=== PATIENT | male | born 1965 | race Caucasian/White ===

== ENCOUNTER 2017-01-05 17:43 | Inpatient (IN) | payer BC ==
[~2017-01-05] VITALS: Ht 182.9 cm; Wt 98.0 kg
[2017-01-05] MEDS ORDERED: LEVOTHYROXINE100 MCG ORAL (17:55)
[2017-01-05] MEDS ORDERED: LASIX20 M1 ORAL (17:55)
[2017-01-05] MEDS ORDERED: LORATADINE10 M2 PO (17:55)
[2017-01-05] MEDS ORDERED: SYMBICORT 1601 PUFFS INH (17:55)
[2017-01-05] MEDS ORDERED: KLOR-CON M2020 MEQ ORAL (17:55)
[2017-01-05] MEDS ORDERED: KLOR-CON M1010 ME1 PO (17:55)
[2017-01-05] MEDS ORDERED: METOPROLOL SUC100 MG ORAL (17:55)
[2017-01-05] MEDS ORDERED: KLONOPIN0.5 MG ORAL (17:58)
[2017-01-05] MEDS ORDERED: LOSARTAN POTASS25 MG ORAL (17:58)
[2017-01-05] MEDS ORDERED: OMEPRAZOLE40 M1 ORAL (17:58)
[2017-01-05] MEDS ORDERED: Nitroglycerin 2% oint pkt TOPIC ONE (18:00)
[2017-01-05] MEDS ORDERED: Famotidine 20 MG/ 2ML VIAL IVP ONE (18:00)
--- NOTE | 2017-01-05 18:03 | Emergency Room Report ---
History of Present Illness General Chief Complaint: Chest Pain Source: Patient Present Illness HPI Patient presents with crushing substernal chest pain it feels like a 200 pound elephant sitting on his chest. Began 18 hours ago. He started cardiac rehabilitation last week and has had 3 episodes. After each episode he said the same crushing substernal chest pain. The pain is 8/10 when paramedics arrived. They gave him aspirin and nitroglycerin spray and now the pain is a 2/ 10. Radiates up into his neck. His doctors told him that he might be having angina and to come into the hospital and called paramedics. The patient is a history of congestive heart failure was admitted to in October. At that time his heart rate was 16 and the ejection fraction of 60 also. He did some abdominal surgery and this corrected the problem. He denies having a blood clot at that time. The nature of this event is unclear. He had an angiogram 2 and half years ago which was "normal" according to him. In addition to this is been worked up for arrhythmias recently. The plan doing another event monitor in February. Consideration for placement of implanted defibrillator. The patient is on Lasix. Causes diarrhea. He's lost a lot of weight and no longer has to take blood pressure medications. Also he is off of diabetic medications. His cholesterol has also dropped down, but he is on statins. After his discharge in October he's had more nasal congestion and postnasal drip. Denies any fevers. Allergies: Coded Allergies: Egg Yolk (Verified Allergy, Unknown, Itching, diarrhea, 01/06/17) IODINE (Verified Allergy, Unknown, 01/06/17) PENICILLINS (Verified Allergy, Unknown, 01/05/17) Uncoded Allergies: DYE (Allergy, Unknown, 01/05/17) SHELLFISH (Allergy, Unknown, 01/05/17) SULFA (Allergy, Unknown, 01/05/17) Patient History Past Medical History: see triage record Social History: Denies: smoking Social History Narrative mom is coming Reviewed Nursing Documentation: PMH: Agreed, PSxH: Agreed Nursing Documentation-PMH Past Medical History: No History, Except For Hx Cardiac Problems: Yes - CHF, hypothyroidism, hypogonadism, high cholesterol , hypoadrenalism Hx Hypertension: Yes Review of Systems All Other Systems: negative except mentioned in HPI Physical Exam Vital Signs Date Time Temp Pulse Resp B/P Pulse Ox O2 Delivery O2 Flow Rate FiO2 01/05/17 17:48 96.6 77 16 118/76 100 Room Air Sp02 EP Interpretation: reviewed, normal General Appearance: well appearing, no apparent distress, GCS 15 Head: normocephalic Eyes: bilateral eye PERRL, bilateral eye normal inspection ENT: moist mucus membranes Neck: supple Respiratory: chest non-tender, lungs clear, normal breath sounds Cardiovascular #1: regular rate, rhythm Cardiovascular #2: 2+ radial (R) Gastrointestinal: normal inspection, normal bowel sounds, non tender, no mass, non-distended Musculoskeletal: back normal, gait/station normal, normal range of motion Neurologic: alert, oriented x3, grossly normal Psychiatric: mood/affect normal Skin: normal inspection, warm/dry Medical Decision Making Diagnostic Impression: Primary Impression: Acute coronary syndrome Additional Impression: H/O CHF ER Course Patient presents with chest pressure. The fact that the pain is better after aspirin and nitrates suggestive either of acute coronary syndrome or esophageal spasm. He's been having exertional symptoms after cardiac rehabilitation which suggests this is more related to his heart. Alternatively this could be to increased mucoid nasal discharge and GERD. However we need to exclude acute coronary syndrome. Workup will be with EKG, labs, cardiac monitoring. The patient be treated with nitro paste as well as aspirin in the field and his pain is almost completely resolved here. EKG is normal sinus rhythm rate of 65 normal intervals normal axis. Chest x- ray no acute pathology. Initial troponin is negative. Pain at 18:30 1/10. Patient continued with minimal pain. Admit telemetry, Dr. Nguyễn. Dr. Coppola here evaluating patient. Laboratory Tests Test 01/05/17 17:35 01/05/17 18:06 01/05/17 22:50 Urine Color Pale yellow Urine Appearance Clear Urine pH 5 (4.5-8.0) Urine Specific [place] 1.005 (1.005-1.035) Urine Protein Negative (NEGATIVE) Urine Glucose (UA) Negative (NEGATIVE) Urine Ketones Negative (NEGATIVE) Urine Occult Blood 1+ (NEGATIVE) H Urine Nitrite Negative (NEGATIVE) Urine Bilirubin Negative (NEGATIVE) Urine Urobilinogen Normal MG/DL (0.0-1.0) Urine Leukocyte Esterase Negative (NEGATIVE) Urine RBC 0-2 /HPF (0 - 0) H Urine WBC 0-2 /HPF (0 - 0) Urine Squamous Epithelial Cells None /LPF (NONE/OCC) Urine Amorphous Sediment /LPF (NONE) Urine Bacteria Few /HPF (NONE) Urine Opiates Screen Negative (NEGATIVE) Urine Barbiturates Screen Negative (NEGATIVE) Phencyclidine (PCP) Screen Negative (NEGATIVE) Urine Amphetamines Screen Negative (NEGATIVE) Urine Benzodiazepines Screen Negative (NEGATIVE) Urine Cocaine Screen Negative (NEGATIVE) Urine Marijuana (THC) Screen Negative (NEGATIVE) White Blood Count 10.9 K/UL (4.8-10.8) H Red Blood Count 5.25 M/UL (4.70-6.10) Hemoglobin 15.3 G/DL (14.2-18.0) Hematocrit 47.0 % (42.0-52.0) Mean Corpuscular Volume 89 FL (80-99) Mean Corpuscular Hemoglobin 29.1 PG (27.0-31.0) Mean Corpuscular Hemoglobin Concent 32.5 G/DL (32.0-36.0) Red Cell Distribution Width 12.8 % (11.6-14.8) Platelet Count 229 K/UL (150-450) Mean Platelet Volume 7.5 FL (6.5-10.1) Neutrophils (%) (Auto) 69.5 % (45.0-75.0) Lymphocytes (%) (Auto) 20.1 % (20.0-45.0) Monocytes (%) (Auto) 6.8 % (1.0-10.0) Eosinophils (%) (Auto) 2.3 % (0.0-3.0) Basophils (%) (Auto) 1.3 % (0.0-2.0) Prothrombin Time 10.0 SEC (9.30-11.50) Prothrombin Time INR 1.0 (0.9-1.1) PTT 26 SEC (23-33) Sodium Level 143 mEQ/L (135-145) Potassium Level 4.2 mEQ/L (3.4-4.9) Chloride Level 102 mEQ/L (98-107) Carbon Dioxide Level 27 mEQ/L (20-30) Anion Gap 14 (5-15) Blood Urea Nitrogen 10 mg/dL (7-23) Creatinine 1.1 mg/dL (0.7-1.2) Estimate Glomerular Filtration Rate > 60 mL/min (>60) Glucose Level 92 mg/dL (74-106) Calcium Level 9.4 mg/dL (8.6-10.2) Total Bilirubin 0.6 mg/dL (0.0-1.2) Aspartate Amino Transferase (AST) 21 U/L (5-40) Alanine Aminotransferase (ALT) 30 U/L (3-41) Alkaline Phosphatase 114 U/L (40-129) Total Creatine Kinase 32 U/L (38-174) L Troponin I < 0.30 ng/mL (<=0.30) < 0.30 ng/mL (<=0.30) Pro-B-Type Natriuretic Peptide 174 pg/mL (0-125) H Total Protein 6.8 g/dL (6.6-8.7) Albumin 4.3 g/dL (3.5-5.2) Globulin 2.5 g/dL Albumin/Globulin Ratio 1.7 (1.0-2.7) EKG Diagnostic Results Rate: normal Rhythm: NSR ST Segments: no acute changes ASA given to the pt in ED: Yes - EMS Rhythm Strip Diag. Results EP Interpretation: yes Rhythm: NSR, no PVC's, no ectopy Chest X-Ray Diagnostic Results Chest X-Ray Ordered: Yes # of Views/Limited/Complete: 1 View EP Interpretation: Yes Interpretation: no consolidation, no effusion, no pneumothorax, no acute cardiopulmonary disease Indication: Chest Pain Impression: No acute disease Interpreting ER Provider: Monalisa Last Vital Signs Date Time Temp Pulse Resp B/P Pulse Ox O2 Delivery O2 Flow Rate FiO2 01/05/17 17:48 96.6 77 16 118/76 100 Room Air Status: improved Disposition: ADMITTED INPATIENT Condition: Serious Ede Sheldon M.D. Jan 05, 2017 18:03
[2017-01-05 18:09] VITALS: BP 118/76
[2017-01-05 18:24] LABS: APPEARANCE,URINE CLEAR; KETONES,URINE NEGATIVE (NEGATIVE); LEUKOCYTE ESTERASE ,URINE NEGATIVE (NEGATIVE); NITRITE,URINE NEGATIVE (NEGATIVE); PH,URINE 5 (4.5-8.0); PROTEIN,URINE NEGATIVE (NEGATIVE); UROBILINOGEN,URINE NORMAL MG/DL (0.0-1.0)
[2017-01-05 18:44] LABS: BASOPHILS % (AUTO) 1.3 % (0.0-2.0); EOSINOPHILS % (AUTO) 2.3 % (0.0-3.0); LYMPHOCYTES % (AUTO) 20.1 % (20.0-45.0); MEAN CORPUSCULAR HEMOGLOBIN 29.1 PG (27.0-31.0); MEAN CORPUSCULAR HGB CONC 32.5 G/DL (32.0-36.0); MEAN CORPUSCULAR VOLUME 89 FL (80-99); MEAN PLATELET VOLUME 7.5 FL (6.5-10.1); MONOCYTES % (AUTO) 6.8 % (1.0-10.0); NEUTROPHILS % (AUTO) 69.5 % (45.0-75.0); PLATELET COUNT 229 K/UL (150-450); RED BLOOD COUNT 5.25 M/UL (4.70-6.10); RED CELL DISTRIBUTION WIDTH 12.8 % (11.6-14.8); WHITE BLOOD COUNT 10.9 K/UL (4.8-10.8)
[2017-01-05 18:45] LABS: BACTERIA,URINE FEW /HPF; RBC,URINE 0-2 /HPF (0 - 0); WBC,URINE 0-2 /HPF (0 - 0)
[2017-01-05] MEDS ORDERED: HYDROCORTISONE20 MG PO (18:54)
[2017-01-05] MEDS ORDERED: ANDROGEL 1.62% TOPIC (18:56)
[2017-01-05] MEDS ORDERED: HYDROCORTISONE5 MG PO (18:58)
[2017-01-05] MEDS ORDERED: ATORVASTATIN CA40 MG ORAL (18:59)
[2017-01-05] MEDS ORDERED: SYMBICORT 16010.2 G1 IH (19:02)
[2017-01-05] MEDS ORDERED: FLUTICASONE PRO16 G1 NASAL (19:02)
[2017-01-05] MEDS ORDERED: TRAMADOL HCL50 MG ORAL (19:02)
[2017-01-05] MEDS ORDERED: CARAMEL FLAVOR1 ML ORAL (19:02)
[2017-01-05 19:04] LABS: TROPONIN I < 0.30 ng/mL (<=0.30)
[2017-01-05 19:09] LABS: ALANINE AMINOTRANSFERASE 30 U/L (3-41); ALBUMIN/GLOBULIN RATIO 1.7 (1.0-2.7); ANION GAP 14 (5-15); ASPARTATE AMINO TRANSFERASE 21 U/L (5-40); CALCIUM 9.4 mg/dL (8.6-10.2); CARBON DIOXIDE 27 mEQ/L (20-30); CHLORIDE 102 mEQ/L (98-107); CREATININE 1.1 mg/dL (0.7-1.2); GLOMERULAR FILTRATION RATE > 60 mL/min (>60); HEMOLYSIS 3; POTASSIUM 4.2 mEQ/L (3.4-4.9); SODIUM 143 mEQ/L (135-145); TOTAL PROTEIN 6.8 g/dL (6.6-8.7)
[2017-01-05 20:00] VITALS: BP 108/59
[2017-01-05 21:51] VITALS: BP 115/70
[2017-01-05 22:30] VITALS: BP 112/74
[2017-01-05] MEDS ORDERED: Miralax 17gm pkt ORAL PRN (23:00)
[2017-01-05] MEDS ORDERED: Milk of Magnesia 30ml Ud ORAL PRN (23:00)
[2017-01-05] MEDS ORDERED: Zolpidem 5mg tab ORAL PRN (23:00)
[2017-01-05] MEDS ORDERED: Morphine Sulfate 4mg/ml Inj IVP PRN (23:00)
[2017-01-05] MEDS ORDERED: Morphine Sulfate 2mg/ml Inj IVP PRN (23:00)
[2017-01-05] MEDS ORDERED: clonazePAM 0.5mg tab ORAL SCH (23:00)
[2017-01-05] MEDS ORDERED: Metoprolol XL 100mg tab ORAL ONE (23:45)
[2017-01-05 23:46] LABS: TROPONIN I < 0.30 ng/mL (<=0.30)
[2017-01-06] VITALS: BP 117/80
[2017-01-06] MEDS: Nitroglycerin Subl 0.4mg tab (Bottle Of 25) SL PRN ×3 (01:19→23:14)
[2017-01-06 04:30] VITALS: BP 97/64
--- NOTE | 2017-01-06 04:50 | History and Physical ---
History of Present Illness General Date patient seen: Jan 05, 2017 Time patient seen: 20:00 Reason for Hospitalization: Chest Pain Present Illness HPI 51yo male with pmh of HTN, HLD, GERD, hypothyroidism, hypogonadism, adrenal insufficiency, stress-induced cardiomyopathy now w/ recovery of EF per pt, recent ex-lap who presents with chest pain. Pt had increasing episodes of chest pain since starting cardiac rehab on 12/28/16. Pt describes substernal chest pain pressure and tightness, 8/ which starting during cardiac rehab sessions, lasting abt 18hrs/day. It feels as if an elephant is sitting on his chest. Associated w/ some SOB. No f/c, n/v, d/c, abd pain, cough. Worse w/ lying down. Not changed w/ positional changes. Pt with recent complicated hospital course at [facility] rom 10/20-11/01 after presenting w/ severe abd pain, fevers and diarrhea. Pt was admitted at the time to ICU. Given clinical decline with no source of infection (neg cultures), he underwent exp~laparotomy on 10/22/16 which was unrevealing and had abdominal closure on 10/25/16. During period of critical illness, he had a TTE that showed a drop in EF from 63% (08/04/2016) to 18% (10/22/2016) and global hypokinesis and severe RV dysfunction.~On 10/25/2016, new anterior TWI was noted but WI unlikely given pt remained clinically asymptomatic, downtrending of troponin ~(peaked at 0.29), echo findings of global hypokinesis and non-focal and had normal coronaries from angiogram in 2013. ~He had acute transiminitis up in the s felt to be 2/2 congestive hepatopathy which slowly resolved by discharge. A RHC was performed on 10/22 which showed normal filling pressures with preserved cardiac output. 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 He was discharged with a ziopatch and scheduled to follow up on 11/18/2015 with EP for atrial tachycardia ablation candidacy. Ziopatch showed low burden of atrial tachycardia. e recovered from his acute illness with latest TTE on 10/28/2016 that showed improvement in EF to 45-50% and normal RV function. Interestingly his mother reported that he has a known shrimp allergy and had some shrimp before hospitalization and was felt that ? possibly a severe, atypical allergic reaction. In ED, initial trop and EKG unremarkable.Got ASA and NGT spray by EMS w/ improvement in pain to a 08/20. Allergies: Coded Allergies: Egg Yolk (Verified Allergy, Unknown, Itching, diarrhea, 01/06/17) IODINE (Verified Allergy, Unknown, 01/06/17) PENICILLINS (Verified Allergy, Unknown, 01/05/17) Uncoded Allergies: DYE (Allergy, Unknown, 01/05/17) SHELLFISH (Allergy, Unknown, 01/05/17) SULFA (Allergy, Unknown, 01/05/17) Medication History Scheduled Atorvastatin Calcium* (Atorvastatin Calcium*), 40 MG ORAL BEDTIME, (Reported) Budesonide/Formoterol Fumarate (Symbicort 160-4.5 Mcg Inhaler), 1 PUFF INH TWICE A DAY, (Reported) Budesonide/Formoterol Fumarate (Symbicort 160-4.5 Mcg Inhaler), 1 PUFF IH BID, ( Reported) Fluticasone Propionate* (Fluticasone Propionate*), 1 SPRAY NASAL DAILY, ( Reported) Furosemide* (Lasix*), 20 MG ORAL QOD, (Reported) Hydrocortisone Tablet (Hydrocortisone), 5 MG PO DAILY, (Reported) Levothyroxine Sodium* (Levothyroxine Sodium*), 100 MCG ORAL DAILY, (Reported) Loratadine (Loratadine), 10 MG PO DAILY, (Reported) Losartan Potassium* (Losartan Potassium*), 25 MG ORAL DAILY, (Reported) Metoprolol Succinate* (Metoprolol Succinate*), 100 MG ORAL BID, (Reported) Omeprazole (Omeprazole), 40 MG ORAL BEFORE DINNER, (Reported) Potassium Chloride (Klor-Con M20), 10 MEQ ORAL THREE TIMES A WEEK, (Reported) Potassium Chloride (Klor-Con M10), 10 MEQ PO QOD, (Reported) [Androgel 1.62%], 2 APPLIC TOPIC DAILY, (Reported) Scheduled PRN Caramel Flavor (Caramel Flavor), 2 TSP ORAL NEEDED PRN for For Pain, ( Reported) Clonazepam* (Klonopin*), 0.5 MG ORAL THREE TIMES A DAY PRN for For Anxiety, ( Reported) Tramadol Hcl* (Ultram*), 50 MG ORAL Q8HR PRN for Moderate Pain (Pain Scale 4-6), (Reported) Patient History History Provided By: Patient, Medical Record, EMS, PMD Healthcare decision maker Resuscitation status Full Code Advanced Directive on File Past Medical/Surgical History Past Medical/Surgical History: (1) HTN (hypertension) (2) Hypogonadism (3) Adrenal insufficiency (4) GERD (gastroesophageal reflux disease) (5) Stress-induced cardiomyopathy (6) Hypothyroidism (7) Atrial tachycardia, paroxysmal (8) H/O exploratory laparotomy Family History Family History: Patient reports no known family medical history. Social History Social History: (1) No significant social history Review of Systems Constitutional: Reports: no symptoms Eye: Reports: no symptoms ENT: Reports: no symptoms Respiratory: Reports: shortness of breath Cardiovascular: Reports: chest pain Gastrointestinal: Reports: no symptoms Genitourinary: Reports: no symptoms Musculoskeletal: Reports: no symptoms Skin: Reports: no symptoms Psychiatric: Reports: no symptoms Neurological: Reports: no symptoms Endocrine: Reports: no symptoms Hematologic/Lymphatic: Reports: no symptoms Physical Exam Physical Exam Narrative General: alert, cooperative, no distress, appears stated age Head: normocephalic, without obvious abnormality, atraumatic Eyes: conjunctivae/corneas clear. PERRL, EOM's intact Throat: lips, mucosa, and tongue normal. MMM Neck: supple, symmetrical, trachea midline, and no JVD Lungs: clear to auscultation bilaterally Heart: regular rate and rhythm, S1, S2 normal, no murmur, click, rub or gallop Abdomen: soft, non-tender, non-distended, bowel sounds normal; no masses or organomegaly Extremities: extremities normal, atraumatic, no cyanosis or edema Pulses: 2+ and symmetric Skin: skin color, texture, turgor normal; no rashes or lesions Neurologic: grossly normal, no focal deficits Last 24 Hour Vital Signs Date Time Temp Pulse Resp B/P Pulse Ox O2 Delivery O2 Flow Rate FiO2 01/06/17 01:37 104/64 01/06/17 01:19 118/76 01/06/17 00:13 70 117/80 01/06/17 00:00 97.5 62 21 117/80 98 Room Air 01/06/17 00:00 61 01/05/17 22:30 97.4 68 18 112/74 99 Room Air 01/05/17 22:30 65 01/05/17 22:15 98.0 64 13 115/70 99 Room Air 01/05/17 21:51 64 13 115/70 99 Room Air 01/05/17 20:00 64 17 108/59 99 Room Air 01/05/17 18:17 104/67 01/05/17 18:09 77 16 Room Air 01/05/17 18:09 98.0 16 118/76 100 Room Air 01/05/17 17:48 96.6 77 16 118/76 100 Room Air Intake and Output 01/05/17 01/06/17 19:00 07:00 Intake Total 0 ml Balance 0 ml Intake Oral 0 ml Laboratory Tests Test 01/05/17 17:35 01/05/17 18:06 01/05/17 22:50 Urine Color Pale yellow Urine Appearance Clear Urine pH 5 (4.5-8.0) Urine Specific [place] 1.005 (1.005-1.035) Urine Protein Negative (NEGATIVE) Urine Glucose (UA) Negative (NEGATIVE) Urine Ketones Negative (NEGATIVE) Urine Occult Blood 1+ (NEGATIVE) H Urine Nitrite Negative (NEGATIVE) Urine Bilirubin Negative (NEGATIVE) Urine Urobilinogen Normal MG/DL (0.0-1.0) Urine Leukocyte Esterase Negative (NEGATIVE) Urine RBC 0-2 /HPF (0 - 0) H Urine WBC 0-2 /HPF (0 - 0) Urine Squamous Epithelial Cells None /LPF (NONE/OCC) Urine Amorphous Sediment /LPF (NONE) Urine Bacteria Few /HPF (NONE) Urine Opiates Screen Negative (NEGATIVE) Urine Barbiturates Screen Negative (NEGATIVE) Phencyclidine (PCP) Screen Negative (NEGATIVE) Urine Amphetamines Screen Negative (NEGATIVE) Urine Benzodiazepines Screen Negative (NEGATIVE) Urine Cocaine Screen Negative (NEGATIVE) Urine Marijuana (THC) Screen Negative (NEGATIVE) White Blood Count 10.9 K/UL (4.8-10.8) H Red Blood Count 5.25 M/UL (4.70-6.10) Hemoglobin 15.3 G/DL (14.2-18.0) Hematocrit 47.0 % (42.0-52.0) Mean Corpuscular Volume 89 FL (80-99) Mean Corpuscular Hemoglobin 29.1 PG (27.0-31.0) Mean Corpuscular Hemoglobin Concent 32.5 G/DL (32.0-36.0) Red Cell Distribution Width 12.8 % (11.6-14.8) Platelet Count 229 K/UL (150-450) Mean Platelet Volume 7.5 FL (6.5-10.1) Neutrophils (%) (Auto) 69.5 % (45.0-75.0) Lymphocytes (%) (Auto) 20.1 % (20.0-45.0) Monocytes (%) (Auto) 6.8 % (1.0-10.0) Eosinophils (%) (Auto) 2.3 % (0.0-3.0) Basophils (%) (Auto) 1.3 % (0.0-2.0) Prothrombin Time 10.0 SEC (9.30-11.50) Prothromb Time International Ratio 1.0 (0.9-1.1) Activated Partial Thromboplast Time 26 SEC (23-33) Sodium Level 143 mEQ/L (135-145) Potassium Level 4.2 mEQ/L (3.4-4.9) Chloride Level 102 mEQ/L (98-107) Carbon Dioxide Level 27 mEQ/L (20-30) Anion Gap 14 (5-15) Blood Urea Nitrogen 10 mg/dL (7-23) Creatinine 1.1 mg/dL (0.7-1.2) Estimat Glomerular Filtration Rate > 60 mL/min (>60) Glucose Level 92 mg/dL (74-106) Calcium Level 9.4 mg/dL (8.6-10.2) Total Bilirubin 0.6 mg/dL (0.0-1.2) Aspartate Amino Transf (AST/SGOT) 21 U/L (5-40) Alanine Aminotransferase (ALT/SGPT) 30 U/L (3-41) Alkaline Phosphatase 114 U/L (40-129) Total Creatine Kinase 32 U/L (38-174) L Troponin I < 0.30 ng/mL (<=0.30) < 0.30 ng/mL (<=0.30) Pro-B-Type Natriuretic Peptide 174 pg/mL (0-125) H Total Protein 6.8 g/dL (6.6-8.7) Albumin 4.3 g/dL (3.5-5.2) Globulin 2.5 g/dL Albumin/Globulin Ratio 1.7 (1.0-2.7) Height (Feet): 6 Height (Inches): 8.00 Weight (Pounds): 216 Medications Current Medications Medications (Trade) Dose Ordered Sig/Mike Route PRN Reason Start Time Stop Time Status Last Admin Dose Admin Acetaminophen (Tylenol) 650 mg Q4H PRN ORAL Mild Pain (Pain Scale 1-3) 01/05/17 23:00 02/04/17 22:59 Acetaminophen (Tylenol) 650 mg Q4H PRN ORAL fever 01/05/17 23:00 02/04/17 22:59 Aspirin (ASA) 81 mg DAILY ORAL 01/06/17 09:00 02/05/17 08:59 Atorvastatin Calcium (Lipitor) 40 mg BEDTIME ORAL 01/05/17 23:30 02/04/17 23:29 01/06/17 00:03 Bisacodyl (Dulcolax) 10 mg HSPRN PRN RECTAL Constipation 01/05/17 23:00 02/04/17 22:59 Budesonide/ Formoterol Fumarate (Symbicort 160/ 4.5) 1 puff TWICE A DAY INH 01/06/17 09:00 02/05/17 08:59 Clonazepam (KlonoPIN) 0.5 mg TIDPRN ORAL 01/06/17 23:00 01/12/17 22:59 Dextrose (Dextrose 50%) STAT PRN IV Hypoglycemia 01/05/17 23:00 02/04/17 22:59 Docusate Sodium (Colace) 100 mg EVERY 12 HOURS ORAL 01/06/17 09:00 02/05/17 08:59 Fluticasone Propionate (Flonase) 1 spray DAILY NASAL 01/06/17 09:00 02/05/17 08:59 Furosemide (Lasix) 20 mg QOD ORAL 01/07/17 09:00 02/06/17 08:59 Heparin Sodium (Porcine) (Heparin 5000 units/ml) 5,000 units EVERY 12 HOURS SUBQ 01/06/17 09:00 02/05/17 08:59 Hydrocortisone (Cortef) 5 mg DAILY ORAL 01/06/17 09:00 02/05/17 08:59 Levothyroxine Sodium (Synthroid) 100 mcg BEFORE BREAKFAST ORAL 01/06/17 06:30 02/05/17 06:29 Losartan Potassium (Cozaar) 25 mg DAILY ORAL 01/06/17 13:00 02/05/17 12:59 Magnesium Hydroxide (Mom) 30 ml HSPRN PRN ORAL Constipation 01/05/17 23:00 02/04/17 22:59 Metoprolol Succinate (Toprol XL) 100 mg Q12HR ORAL 01/06/17 09:00 02/05/17 08:59 Morphine Sulfate (Morphine Sulfate) 2 mg Q4HR PRN IVP Moderate Pain (Pain Scale 4-6) 01/05/17 23:00 01/12/17 22:59 Morphine Sulfate (Morphine Sulfate) 4 mg Q4H PRN IVP Severe Pain (Pain Scale 7-10) 01/05/17 23:00 01/12/17 22:59 Nitroglycerin (Ntg) 0.4 mg Q5M PRN SL Prn Chest Pain 01/05/17 23:00 02/04/17 22:59 01/06/17 01:37 Ondansetron HCl (Zofran) 4 mg Q6H PRN IVP Nausea & Vomiting 01/05/17 23:00 02/04/17 22:59 Polyethylene Glycol (Miralax) 17 gm HSPRN PRN ORAL Constipation 01/05/17 23:00 02/04/17 22:59 Potassium Chloride (K-Dur) 10 meq QOD ORAL 01/07/17 09:00 02/06/17 08:59 Tramadol HCl (Ultram) 50 mg Q6H PRN ORAL For moderate to severe Pain 01/05/17 23:00 01/12/17 22:59 Zolpidem Tartrate (Ambien) 5 mg HSPRN PRN ORAL Insomnia 01/05/17 23:00 02/04/17 22:59 Assessment/Plan Problem List: (1) Chest pain ICD Codes: R07.9 - Chest pain, unspecified SNOMED: 96896982 (2) Stress-induced cardiomyopathy ICD Codes: I51.81 - Takotsubo syndrome SNOMED: 088311076 (3) Atrial tachycardia, paroxysmal ICD Codes: I47.1 - Supraventricular tachycardia SNOMED: 963281965 (4) HTN (hypertension) ICD Codes: I10 - Essential (primary) hypertension SNOMED: 25652002 (5) Adrenal insufficiency ICD Codes: E27.40 - Unspecified adrenocortical insufficiency SNOMED: 276889169 (6) GERD (gastroesophageal reflux disease) ICD Codes: K21.9 - Gastro-esophageal reflux disease without esophagitis SNOMED: 261196444 (7) Hypothyroidism ICD Codes: E03.9 - Hypothyroidism, unspecified SNOMED: 03324088 Status: stable Assessment/Plan Admit inpt Cardiology consult Trend trop/EKG Check TTE Will likely need stress test Cont ASA, statin Cont home meds: MTP, losartan, hydrocortisone, synthroid, lasix + KCl, symbicort Check A1C, lipid panel, TSH for risk stratification Mady Cormier M.D. Jan 06, 2017 04:50
[2017-01-06 08:04] VITALS: BP 97/63
[2017-01-06] MEDS: Aspirin Baby 81mg ORAL SCH (08:28)
[2017-01-06] MEDS: Docusate 100mg cap ORAL SCH ×2 (08:30→20:33)
[2017-01-06] MEDS: traMADol 50mg tab ORAL PRN ×2 (08:30→16:32)
[2017-01-06] MEDS: Heparin 5000 units/ml inj SUBQ SCH ×2 (08:31→20:36)
[2017-01-06 08:32] LABS: EOSINOPHILS % (AUTO) 2.7 % (0.0-3.0); MEAN CORPUSCULAR HEMOGLOBIN 29.5 PG (27.0-31.0); MEAN CORPUSCULAR HGB CONC 32.9 G/DL (32.0-36.0); MEAN CORPUSCULAR VOLUME 90 FL (80-99); MEAN PLATELET VOLUME 7.3 FL (6.5-10.1); MONOCYTES % (AUTO) 9.8 % (1.0-10.0); NEUTROPHILS % (AUTO) 49.5 % (45.0-75.0); PLATELET COUNT 198 K/UL (150-450); RED BLOOD COUNT 4.74 M/UL (4.70-6.10); WHITE BLOOD COUNT 7.7 K/UL (4.8-10.8)
[2017-01-06] MEDS: Metoprolol XL 100mg tab ORAL SCH ×2 (08:32→20:33)
[2017-01-06] MEDS ORDERED: Hydrocortisone 20mg tab ORAL SCH (09:00)
[2017-01-06] MEDS ORDERED: Metoprolol XL 100mg tab ORAL SCH (09:00)
[2017-01-06] MEDS ORDERED: Losartan 25mg tab ORAL SCH (09:00)
[2017-01-06 09:14] LABS: ALANINE AMINOTRANSFERASE 30 U/L (3-41); ALBUMIN/GLOBULIN RATIO 1.6 (1.0-2.7); ANION GAP 13 (5-15); ASPARTATE AMINO TRANSFERASE 26 U/L (5-40); CARBON DIOXIDE 26 mEQ/L (20-30); CHLORIDE 103 mEQ/L (98-107); CHOLESTEROL 104 mg/dL (< 200); CHOLESTEROL/HDL RATIO 2.3 (3.3-4.4); CREATININE 1.1 mg/dL (0.7-1.2); GLOMERULAR FILTRATION RATE > 60 mL/min (>60); HEMOLYSIS 6; LDL CHOLESTEROL (CALC.) 35 mg/dL (60-99); MAGNESIUM 2.1 mg/dL (1.7-2.5); POTASSIUM 3.8 mEQ/L (3.4-4.9); SODIUM 142 mEQ/L (135-145); TOTAL PROTEIN 5.8 g/dL (6.6-8.7)
[2017-01-06 09:19] LABS: TROPONIN I < 0.30 ng/mL (<=0.30)
[2017-01-06 09:57] LABS: HEMOGLOBIN A1C 5.3 % (< 6.0)
[2017-01-06] MEDS: clonazePAM 0.5mg tab ORAL PRN (10:22)
[2017-01-06] MEDS: Flonase Nasal Inhaler 16gm NASAL SCH (10:22)
[2017-01-06 11:56] VITALS: BP 119/75
[2017-01-06] MEDS: Losartan 25mg tab ORAL SCH (12:11)
--- NOTE | 2017-01-06 13:18 | Cardiac Electrophysiology PN ---
Subjective Subjective [id number] Objective Last 24 Hour Vital Signs Date Time Temp Pulse Resp B/P Pulse Ox O2 Delivery O2 Flow Rate FiO2 01/06/17 12:11 119/75 01/06/17 11:56 97.3 58 18 119/75 98 Room Air 01/06/17 09:53 65 18 99 Room Air 01/06/17 09:53 65 18 Room Air 01/06/17 09:53 65 18 99 Room Air 01/06/17 09:29 97.3 01/06/17 08:32 56 97/63 01/06/17 08:04 97.3 56 18 97/63 97 Room Air 01/06/17 07:44 65 01/06/17 04:30 97.3 67 21 97/64 97 Room Air 01/06/17 04:00 65 01/06/17 01:37 104/64 01/06/17 01:19 118/76 01/06/17 00:13 70 117/80 01/06/17 00:00 97.5 62 21 117/80 98 Room Air 01/06/17 00:00 61 01/05/17 22:30 97.4 68 18 112/74 99 Room Air 01/05/17 22:30 65 01/05/17 22:15 98.0 64 13 115/70 99 Room Air 01/05/17 21:51 64 13 115/70 99 Room Air 01/05/17 20:00 64 17 108/59 99 Room Air 01/05/17 18:17 104/67 01/05/17 18:09 77 16 Room Air 01/05/17 18:09 98.0 16 118/76 100 Room Air 01/05/17 17:48 96.6 77 16 118/76 100 Room Air Intake and Output 01/05/17 01/06/17 19:00 07:00 Intake Total 0 ml Balance 0 ml Intake Oral 0 ml # Voids 1 Laboratory Tests Test 01/05/17 17:35 01/05/17 18:06 01/05/17 22:50 01/06/17 07:10 Urine Color Pale yellow Urine Appearance Clear Urine pH 5 (4.5-8.0) Urine Specific [place] 1.005 (1.005-1.035) Urine Protein Negative (NEGATIVE) Urine Glucose (UA) Negative (NEGATIVE) Urine Ketones Negative (NEGATIVE) Urine Occult Blood 1+ (NEGATIVE) H Urine Nitrite Negative (NEGATIVE) Urine Bilirubin Negative (NEGATIVE) Urine Urobilinogen Normal MG/DL (0.0-1.0) Urine Leukocyte Esterase Negative (NEGATIVE) Urine RBC 0-2 /HPF (0 - 0) H Urine WBC 0-2 /HPF (0 - 0) Urine Squamous Epithelial Cells None /LPF (NONE/OCC) Urine Amorphous Sediment /LPF (NONE) Urine Bacteria Few /HPF (NONE) Urine Opiates Screen Negative (NEGATIVE) Urine Barbiturates Screen Negative (NEGATIVE) Phencyclidine (PCP) Screen Negative (NEGATIVE) Urine Amphetamines Screen Negative (NEGATIVE) Urine Benzodiazepines Screen Negative (NEGATIVE) Urine Cocaine Screen Negative (NEGATIVE) Urine Marijuana (THC) Screen Negative (NEGATIVE) White Blood Count 10.9 K/UL (4.8-10.8) H 7.7 K/UL (4.8-10.8) Red Blood Count 5.25 M/UL (4.70-6.10) 4.74 M/UL (4.70-6.10) Hemoglobin 15.3 G/DL (14.2-18.0) 14.0 G/DL (14.2-18.0) L Hematocrit 47.0 % (42.0-52.0) 42.5 % (42.0-52.0) Mean Corpuscular Volume 89 FL (80-99) 90 FL (80-99) Mean Corpuscular Hemoglobin 29.1 PG (27.0-31.0) 29.5 PG (27.0-31.0) Mean Corpuscular Hemoglobin Concent 32.5 G/DL (32.0-36.0) 32.9 G/DL (32.0-36.0) Red Cell Distribution Width 12.8 % (11.6-14.8) 13.0 % (11.6-14.8) Platelet Count 229 K/UL (150-450) 198 K/UL (150-450) Mean Platelet Volume 7.5 FL (6.5-10.1) 7.3 FL (6.5-10.1) Neutrophils (%) (Auto) 69.5 % (45.0-75.0) 49.5 % (45.0-75.0) Lymphocytes (%) (Auto) 20.1 % (20.0-45.0) 37.0 % (20.0-45.0) Monocytes (%) (Auto) 6.8 % (1.0-10.0) 9.8 % (1.0-10.0) Eosinophils (%) (Auto) 2.3 % (0.0-3.0) 2.7 % (0.0-3.0) Basophils (%) (Auto) 1.3 % (0.0-2.0) 1.0 % (0.0-2.0) Prothrombin Time 10.0 SEC (9.30-11.50) Prothromb Time International Ratio 1.0 (0.9-1.1) Activated Partial Thromboplast Time 26 SEC (23-33) Sodium Level 143 mEQ/L (135-145) 142 mEQ/L (135-145) Potassium Level 4.2 mEQ/L (3.4-4.9) 3.8 mEQ/L (3.4-4.9) Chloride Level 102 mEQ/L (98-107) 103 mEQ/L (98-107) Carbon Dioxide Level 27 mEQ/L (20-30) 26 mEQ/L (20-30) Anion Gap 14 (5-15) 13 (5-15) Blood Urea Nitrogen 10 mg/dL (7-23) 13 mg/dL (7-23) Creatinine 1.1 mg/dL (0.7-1.2) 1.1 mg/dL (0.7-1.2) Estimat Glomerular Filtration Rate > 60 mL/min (>60) > 60 mL/min (>60) Glucose Level 92 mg/dL (74-106) 91 mg/dL (74-106) Calcium Level 9.4 mg/dL (8.6-10.2) 9.0 mg/dL (8.6-10.2) Total Bilirubin 0.6 mg/dL (0.0-1.2) 0.5 mg/dL (0.0-1.2) Aspartate Amino Transf (AST/SGOT) 21 U/L (5-40) 26 U/L (5-40) Alanine Aminotransferase (ALT/SGPT) 30 U/L (3-41) 30 U/L (3-41) Alkaline Phosphatase 114 U/L (40-129) 96 U/L (40-129) Total Creatine Kinase 32 U/L (38-174) L Troponin I < 0.30 ng/mL (<=0.30) < 0.30 ng/mL (<=0.30) < 0.30 ng/mL (<=0.30) Pro-B-Type Natriuretic Peptide 174 pg/mL (0-125) H 115 pg/mL (0-125) Total Protein 6.8 g/dL (6.6-8.7) 5.8 g/dL (6.6-8.7) L Albumin 4.3 g/dL (3.5-5.2) 3.6 g/dL (3.5-5.2) Globulin 2.5 g/dL 2.2 g/dL Albumin/Globulin Ratio 1.7 (1.0-2.7) 1.6 (1.0-2.7) Hemoglobin A1c 5.3 % (< 6.0) Magnesium Level 2.1 mg/dL (1.7-2.5) Triglycerides Level 117 mg/dL (< 150) Cholesterol Level 104 mg/dL (< 200) LDL Cholesterol 35 mg/dL (60-99) L HDL Cholesterol 46 mg/dL (> 60) Cholesterol/HDL Ratio 2.3 (3.3-4.4) L Thyroid Stimulating Hormone (TSH) 3.580 uIU/mL (0.300-4.500) CHOCO WEINER Jan 06, 2017 13:18
[2017-01-06 15:58] VITALS: BP 112/73
--- NOTE | 2017-01-06 16:45 | Diagnostic Imaging Report ---
Indication: Chest pain Technique: One view of the chest Comparison: none Findings: The heart size is upper limits normal. Lungs and pleural spaces are clear. Old healed bilateral rib fracture deformities are noted. Impression: No acute process This agrees with the preliminary interpretation provided by the emergency room physician
--- NOTE | 2017-01-06 17:16 | Consultation ---
DATE OF CONSULTATION: 01/06/2017 CARDIAC ELECTROPHYSIOLOGY CONSULTATION CONSULTING PHYSICIAN: Cristofer Chowdhury M.D. REFERRING PHYSICIAN: Aubree Nguyễn M.D. REASON FOR CONSULTATION: Chest pain in a patient with history of cardiomyopathy. HISTORY OF PRESENT ILLNESS: The patient is a 51-year-old gentleman with history of hypertension, hyperlipidemia, as well as mitral valve prolapse and gastroesophageal reflux disease who presented originally in October of 2016 to [facility] with abdominal pain, fever, and diarrhea. The patient had unrevealing exploratory laparotomy on 10/20/2016. On 10/22/2016, the case was complicated. The patient was found unresponsive requiring intubation and was septic. He was subsequently extubated on 10/26/2016. The patient had an echocardiogram, which showed dropped ejection fraction from 63% to 18% during the critical illness with global hypokinesia. His most recent echocardiogram performed on 10/28/2016 showed ejection fraction of 45% to 50%, normal RV function, consistent with stress cardiomyopathy and little bit tachycardia-induced cardiomyopathy. On the telemetry during hospitalization, the patient had evidence of atrial tachycardia and was continued on metoprolol 150 mg b.i.d. the patient presented to the emergency room with increasing chest pain and shortness of breath since he has been at cardiac rehabilitation since 12/28/2016. At the time of my evaluation, the patient denies any headache, chest pain, or shortness of breath. It is of note that the patient also underwent a Zio patch that showed bursts of atrial tachycardia. The patient was also seen by Electrophysiology Service and metoprolol was increased from 150 mg to 200 mg b.i.d. REVIEW OF SYSTEMS: His review of systems was performed and was negative other than what was mentioned in the history of present illness. PAST MEDICAL HISTORY: As mentioned above. FAMILY HISTORY: Noncontributory. SOCIAL HISTORY: Lives at home. Does not smoke or drink alcohol. ALLERGIES: He is allergic to iodine and penicillin. MEDICATIONS: Lipitor, Lasix, losartan, metoprolol, and omeprazole. PHYSICAL EXAMINATION: VITAL SIGNS: Blood pressure of 119/74, pulse is 58, respirations 18, and he is afebrile. HEAD AND NECK: No JVD or carotid bruits. LUNGS: Clear. CARDIOVASCULAR: Regular S1 and S2 with no gallop or murmur. ABDOMEN: Soft. EXTREMITIES: No pitting edema. LABORATORY DATA: His labs show white count of 7.7, hemoglobin of 14, hematocrit of 42, and platelet count of 198,000. Sodium 142, potassium 3.8, BUN of 13, creatinine 1.1. Troponin is negative x3. ASSESSMENT/PLAN: 1. Atypical chest pain. The patient was ruled out for myocardial infarction. It is of note that the patient already had cardiac catheterization in 2014 and that showed normal coronaries. However, in view of now recurrence of his chest pain, we will proceed with nuclear stress test for further evaluation. 2. History of atrial tachycardia. Continue the metoprolol 100 mg b.i.d. 3. History of hypertension, on metoprolol and losartan 5 mg daily. 4. History of stress-induced cardiomyopathy. Ejection fraction improved to 45%. Continue Lasix, metoprolol, and MATTHIAS inhibitor. Thank very much, Dr. Nguyễn, for allowing me to participate in the care of this patient. Please do not hesitate to contact me for any questions regarding my evaluation. Cristofer Chowdhury M.D. DR: JESSICA JOB#: [id number] CC:
[2017-01-06] MEDS: ANDROGEL TOPIC SCH (17:50)
[2017-01-06 20:01] VITALS: BP 118/76
[2017-01-06] MEDS ORDERED: clonazePAM 0.5mg tab ORAL SCH (23:00)
[2017-01-07 00:11] VITALS: BP 115/80
[2017-01-07 03:30] VITALS: BP 97/55
--- NOTE | 2017-01-07 04:15 | General Progress Note ---
Assessment/Plan Problem List: (1) Chest pain ICD Codes: R07.9 - Chest pain, unspecified SNOMED: 49025362 (2) Stress-induced cardiomyopathy ICD Codes: I51.81 - Takotsubo syndrome SNOMED: 607267523 (3) Atrial tachycardia, paroxysmal ICD Codes: I47.1 - Supraventricular tachycardia SNOMED: 781121728 (4) HTN (hypertension) ICD Codes: I10 - Essential (primary) hypertension SNOMED: 21510647 (5) Adrenal insufficiency ICD Codes: E27.40 - Unspecified adrenocortical insufficiency SNOMED: 727642400 (6) GERD (gastroesophageal reflux disease) ICD Codes: K21.9 - Gastro-esophageal reflux disease without esophagitis SNOMED: 802548611 (7) Hypothyroidism ICD Codes: E03.9 - Hypothyroidism, unspecified SNOMED: 26551901 Status: stable Assessment/Plan Chest pain concerning for angina vs coronary spasm vs esophageal origin ( responds to NTG) Appreciate cardiology consult Trop neg x 3 EKG unremarkalbe F/u TTE Plan for nuclear stress test tomorrow Cont ASA, statin Cont home meds: MTP, losartan, hydrocortisone, synthroid, lasix + KCl, symbicort PPI Consider trial of oral nitrate D/w cardiology re plan for stress test Subjective Date patient seen: Jan 06, 2017 Time patient seen: 12:50 ROS Limited/Unobtainable: No Constitutional: Reports: no symptoms HEENT: Reports: no symptoms Cardiovascular: Reports: chest pain Respiratory: Reports: no symptoms Gastrointestinal/Abdominal: Reports: no symptoms Genitourinary: Reports: no symptoms Neurologic/Psychiatric: Reports: no symptoms Endocrine: Reports: no symptoms Hematologic/Lymphatic: Reports: no symptoms Allergies: Coded Allergies: Egg Yolk (Verified Allergy, Unknown, Itching, diarrhea, 01/06/17) IODINE (Verified Allergy, Unknown, 01/06/17) PENICILLINS (Verified Allergy, Unknown, 01/05/17) Uncoded Allergies: DYE (Allergy, Unknown, 01/05/17) SHELLFISH (Allergy, Unknown, 01/05/17) SULFA (Allergy, Unknown, 01/05/17) Subjective Pt states had episode of chest pain this AM and took SL nitro x 2 w/ improvement Currently chest pain 3-10/18 Denies SOB, f/c, n/v, d/c, abd pain Awaiting nuclear stress test Objective Last 24 Hour Vital Signs Date Time Temp Pulse Resp B/P Pulse Ox O2 Delivery O2 Flow Rate FiO2 01/07/17 03:30 98.4 56 19 97/55 97 Room Air 01/07/17 00:11 98.4 70 23 115/80 97 Room Air 01/07/17 00:00 65 01/06/17 23:14 115/80 01/06/17 20:33 81 118/76 01/06/17 20:01 81 18 99 Room Air 01/06/17 20:01 98.1 65 22 118/76 96 Room Air 01/06/17 20:00 60 01/06/17 19:58 81 18 98 Room Air 01/06/17 17:31 97.7 01/06/17 15:58 97.7 61 18 112/73 99 Room Air 01/06/17 15:48 61 01/06/17 12:11 119/75 01/06/17 11:56 97.3 58 18 119/75 98 Room Air 01/06/17 11:35 63 01/06/17 09:53 65 18 99 Room Air 01/06/17 09:53 65 18 Room Air 01/06/17 09:53 65 18 99 Room Air 01/06/17 08:32 56 97/63 01/06/17 08:04 97.3 56 18 97/63 97 Room Air 01/06/17 07:44 65 01/06/17 04:30 97.3 67 21 97/64 97 Room Air Intake and Output 01/06/17 01/07/17 19:00 07:00 Intake Total 1320 ml Balance 1320 ml Intake Oral 1320 ml # Voids 4 Laboratory Tests 01/06/17 07:10: White Blood Count 7.7, Red Blood Count 4.74, Hemoglobin 14.0L, Hematocrit 42.5, Mean Corpuscular Volume 90, Mean Corpuscular Hemoglobin 29.5, Mean Corpuscular Hemoglobin Concent 32.9, Red Cell Distribution Width 13.0, Platelet Count 198, Mean Platelet Volume 7.3, Neutrophils (%) (Auto) 49.5, Lymphocytes (%) (Auto) 37.0, Monocytes (%) (Auto) 9.8, Eosinophils (%) (Auto) 2.7, Basophils (%) (Auto ) 1.0, Sodium Level 142, Potassium Level 3.8, Chloride Level 103, Carbon Dioxide Level 26, Anion Gap 13, Blood Urea Nitrogen 13, Creatinine 1.1, Estimat Glomerular Filtration Rate > 60, Glucose Level 91, Hemoglobin A1c 5.3, Calcium Level 9.0, Magnesium Level 2.1, Total Bilirubin 0.5, Aspartate Amino Transf (AST /SGOT) 26, Alanine Aminotransferase (ALT/SGPT) 30, Alkaline Phosphatase 96, Troponin I < 0.30, Pro-B-Type Natriuretic Peptide 115, Total Protein 5.8L, Albumin 3.6, Globulin 2.2, Albumin/Globulin Ratio 1.6, Triglycerides Level 117, Cholesterol Level 104, LDL Cholesterol 35L, HDL Cholesterol 46, Cholesterol/HDL Ratio 2.3L, Thyroid Stimulating Hormone (TSH) 3.580 Height (Feet): 6 Height (Inches): 8.00 Weight (Pounds): 216 Objective General: alert, cooperative, no distress, appears stated age Head: normocephalic, without obvious abnormality, atraumatic Eyes: conjunctivae/corneas clear. PERRL, EOM's intact Throat: lips, mucosa, and tongue normal. MMM Neck: supple, symmetrical, trachea midline, and no JVD Lungs: clear to auscultation bilaterally Heart: regular rate and rhythm, S1, S2 normal, no murmur, click, rub or gallop Abdomen: soft, non-tender, non-distended, bowel sounds normal; no masses or organomegaly Extremities: extremities normal, atraumatic, no cyanosis or edema Pulses: 2+ and symmetric Skin: skin color, texture, turgor normal; no rashes or lesions Neurologic: grossly normal, no focal deficits Mady Cormier M.D. Jan 07, 2017 04:15
[2017-01-07 08:00] VITALS: BP 104/77
[2017-01-07] MEDS: Metoprolol XL 100mg tab ORAL SCH (08:23)
[2017-01-07] MEDS: Aspirin Baby 81mg ORAL SCH (09:32)
[2017-01-07] MEDS: Flonase Nasal Inhaler 16gm NASAL SCH (09:32)
[2017-01-07] MEDS: Docusate 100mg cap ORAL SCH (09:33)
[2017-01-07] MEDS: Losartan 25mg tab ORAL SCH (09:33)
[2017-01-07] MEDS: Heparin 5000 units/ml inj SUBQ SCH (09:36)
[2017-01-07 12:13] VITALS: BP 102/65
[2017-01-07] MEDS: traMADol 50mg tab ORAL PRN (13:31)
[2017-01-07] MEDS: clonazePAM 0.5mg tab ORAL PRN (13:31)
--- NOTE | 2017-01-07 15:15 | Consultation ---
DATE OF CONSULTATION: NOTE: INCOMPLETE DICTATION CARDIOLOGY CONSULTATION: Ede Gray M.D. DR: ORALIA JOB#: [id number] CC:
--- NOTE | 2017-01-07 15:28 | Diagnostic Imaging Report ---
Indication: Chest pain, hypertension Technique: Resting images obtained with IV administration 11 mCi 99M technetium Myoview. No stress images obtained, stress portion of the exam reportedly canceled Comparison: None Findings: No resting perfusion defects are demonstrated. Normal cardiac chamber size. Impression: Negative for evidence of infarct Unable to evaluate for ischemia, given the absence of post stress images
[2017-01-07] MEDS ORDERED: METOPROLOL TART25 MG ORAL (17:10)
[2017-01-07] MEDS ORDERED: ISOSORBIDE MONO30 M1 ORAL (17:10)
[2017-01-07] MEDS ORDERED: NITROSTAT0.4 M1 SL ×2 (17:26→18:14)
[2017-01-07 17:56] VITALS: BP 102/65
[2017-01-07] MEDS: ANDROGEL TOPIC SCH (17:56)
[2017-01-07] MEDS ORDERED: Imdur 30mg tab ORAL SCH (18:00)
--- NOTE | 2017-01-07 18:51 | Cardiology Report ---
APPROVED REPORT EKG Measurement Heart [id number] Normal sinus rhythm Normal ECG
[2017-01-07] MEDS ORDERED: Metoprolol 50mg tab ORAL SCH (21:00)
--- NOTE | 2017-01-07 21:47 | Discharge Summary ---
Discharge Summary Hospital Course Date of Admission Jan 05, 2017 at 19:18 Date of Discharge Jan 07, 2017 at 18:40 Admitting Diagnosis ACUTE CORONARY SYNDROME ALYSSA Williamson is a 51 year old male who was admitted on Jan 05, 2017 at 19:18 for Acute Coronary Syndrome Discharge Medications New Medications: Metoprolol Tartrate* (Metoprolol Tartrate*) 25 Mg Tablet 50 MG ORAL EVERY 12 HOURS for 30 Days, #60 TAB 1 Refill Isosorbide Mononitrate (Isosorbide Mononitrate Er) 30 Mg Tab.er.24h 30 MG ORAL DAILY for 30 Days, TAB 1 Refill Nitroglycerin (Nitrostat) 0.4 Mg Tab.subl 0.4 MG SL Q5M PRN for 30 Days, #30 TAB 3 Refills Continued Medications: Atorvastatin Calcium* (Atorvastatin Calcium*) 40 Mg Tablet 40 MG ORAL BEDTIME, TAB Budesonide/Formoterol Fumarate (Symbicort 160-4.5 Mcg Inhaler) 6 Gm Hfa.aer.ad 1 PUFF INH TWICE A DAY, #1 INH 0 Refills Budesonide/Formoterol Fumarate (Symbicort 160-4.5 Mcg Inhaler) 10.2 Gm Hfa.aer.ad 1 PUFF IH BID, #1 INH 0 Refills Caramel Flavor (Caramel Flavor) 1 Ml Liquid 2 TSP ORAL NEEDED PRN for For Pain, ML Clonazepam* (Klonopin*) 0.5 Mg Tablet 0.5 MG ORAL THREE TIMES A DAY PRN for For Anxiety, #15 TAB 0 Refills Fluticasone Propionate* (Fluticasone Propionate*) 16 Gm [place].susp 1 SPRAY NASAL DAILY, EA Furosemide* (Lasix*) 20 Mg Tablet 20 MG ORAL QOD, TAB Hydrocortisone Tablet (Hydrocortisone) Y Tab 5 MG PO DAILY, TAB Levothyroxine Sodium* (Levothyroxine Sodium*) 100 Mcg Tablet 100 MCG ORAL DAILY, TAB Take in the morning on an empty stomach, at least 30 minutes before food. Loratadine (Loratadine) 10 Mg Tablet 10 MG PO DAILY, TAB Omeprazole (Omeprazole) 40 Mg Capsule.dr 40 MG ORAL BEFORE DINNER, CAP Potassium Chloride (Klor-Con M20) 20 Meq Tab.er.prt 10 MEQ ORAL THREE TIMES A WEEK, #30 TAB 0 Refills Potassium Chloride (Klor-Con M10) 10 Meq Tab.er.prt 10 MEQ PO QOD, TAB Tramadol Hcl* (Ultram*) 50 Mg Tablet 50 MG ORAL Q8HR PRN for Moderate Pain (Pain Scale 4-6), #30 TAB 0 Refills [Androgel 1.62%] () 2 APPLIC TOPIC DAILY apply on both shoulders Discontinued Medications: Losartan Potassium* (Losartan Potassium*) 25 Mg Tablet 25 MG ORAL DAILY, TAB Metoprolol Succinate* (Metoprolol Succinate*) 100 Mg Tab.er.24h 100 MG ORAL BID, TAB Discharge Condition Upon Discharge: stable Discharge Disposition Patient was discharged to Discharge Diagnoses: Mady Cormier M.D. Jan 07, 2017 21:47
--- NOTE | 2017-01-09 06:02 | Consultation ---
DATE OF CONSULTATION: 01/07/2017 CARDIOLOGY CONSULTATION REQUESTING PHYSICIAN: Aubree Nguyễn M.D. REASON FOR CONSULT: Evaluation of chest pain. HISTORY OF PRESENT ILLNESS: This is a 51-year-old male with a known history of hypertension, hyperlipidemia and mitral valve prolapse, developed a cardiomyopathy following an episode of sepsis in October 2016 with the ejection fraction dropping from 60%-20%. Subsequently, over the course of his hospitalization improvement has been noted and his most recent ejection fraction is in the range of 45% to 50%. The patient has a history of atrial tachyarrhythmias and is on high-dose beta-blockers. He has had some episodes of chest pain and yesterday required three trials of sublingual nitroglycerin tablets before CP progressed for resolution. Of note, in late 2013, he had a coronary angiogram that revealed the absence of any coronary artery disease. PAST MEDICAL HISTORY: As noted above and also includes gastroesophageal reflux disease. MEDICATIONS: Reviewed and reconciled. ALLERGIES: Iodine and penicillin. SOCIAL HISTORY: Negative for smoking, alcohol, or substance abuse. FAMILY HISTORY: Noncontributory. REVIEW OF SYSTEMS: A 10-point review of systems performed. Pertinent data as outlined above. Otherwise, all systems negative. PHYSICAL EXAMINATION: VITAL SIGNS: Blood pressure 138/76, pulse 56, respirations 18, and no fevers. NECK: Supple. Jugular venous pressure normal. LUNGS: Clear. CARDIAC: Regular rhythm and rate. Normal S1 and S2 with a fourth heart sound. ABDOMEN: Soft. EXTREMITIES: No edema. LABORATORY DATA: Troponins are negative. A dobutamine stress test was nondiagnostic due to failure to achieve target heart rate as the patient was on beta-blockade. His echocardiogram now revealed normal ejection fraction of 55% with normal PA systolic pressure gradient and no significant regurgitation. IMPRESSION: 1. Recovered cardiomyopathy. 2. Atypical chest pain. 3. Paroxysmal atrial tachyarrhythmias. 4. Nondiagnostic stress test due to chronotropic incompetence secondary to beta-blockade. RECOMMENDATION: 1. Continue medical therapy. 2. Outpatient followup. 3. Consideration for exercise stress test with myocardial perfusion should there be further clinical suggestions of ischemia. 4. Empiric long-acting nitrate therapy can be continued at this time. Ede Gray M.D. DR: ESTER JOB#: [id number] CC: LAXMI
--- NOTE | 2017-01-10 08:11 | Cardiology Report ---
APPROVED REPORT EXAM: Two-dimensional and M-mode echocardiogram with Doppler and color Doppler. INDICATION Chest Pain M-Mode DIMENSIONS IVSd1.4 (0.7-1.1cm)Left Atrium (MM)4.0 (1.6-4.0cm) LVDd5.3 (3.5-5.6cm)Aortic Root3.4 (2.0-3.7cm) PWd0.9 (0.7-1.1cm)Aortic Cusp Exc.2.2 (1.5-2.0cm) LVDs4.0 (2.5-4.0cm) PWs1.3 cm Normal left ventricular chamber size, mildly depressed systolic function and wall motion. Left ventricular ejection fraction estimated to be 50 %. Mild left ventricular hypertrophy. Anterior Echo-free space, may be due to pericardial fat or effusion. Left and right atrial sizes at upper limits of normal. Right ventricular chamber size is within normal limits. Mild focal aortic valve sclerosis with adequate cusp excursion. Mildly thickened mitral valve leaflets with normal excursion. Mitral annulus and aortic root calcification. Pulmonic valve not well visualized. Normal tricuspid valve structure. IVC dilated at 2.1 cm with slight physiologic collapse suggestive of mildly increased RA pressure. A color flow and spectral Doppler study was performed and revealed: No aortic regurgitation. Trace mitral regurgitation. Mitral inflow indicates normal left ventricular diastolic function. Trace tricuspid regurgitation. Tricuspid systolic velocities suggests peak right ventricular systolic pressure of 21 mmHg.
--- NOTE | 2017-01-14 23:17 | Discharge Summary ---
Discharge Summary Hospital Course Date of Admission Jan 05, 2017 at 19:18 Date of Discharge Jan 07, 2017 at 18:40 Admitting Diagnosis ACUTE CORONARY SYNDROME HPI Velasquez Williamson is a 51 year old male who was admitted on Jan 05, 2017 at 19:18 for Acute Coronary Syndrome Hospital Course [id number] Discharge Discharge Disposition Patient was discharged to home Discharge Diagnoses: Raven Shea NP Jan 14, 2017 23:17
--- NOTE | 2017-01-15 14:00 | Discharge Summary 2 SIG ---
DATE OF ADMISSION: 01/05/2017 DATE OF DISCHARGE: 01/07/2017 CONSULTANTS: 1. Ede Gray M.D. 2. Cristofer Chowdhury M.D. BRIEF HOSPITAL COURSE: The patient is a 51-year-old male with hypertension, hyperlipidemia, GERD, hypothyroidism, hypogonadism, adrenal insufficiency, stress-induced cardiomyopathy with recovery of ejection fraction, presented with increased chest pain. The patient had a recent complicated hospital course at [facility] and at that time, was admitted to ICU. He had a TTE that showed drop in ejection fraction from 63% to 18% and global hypokinesis and severe RV dysfunction. On 10/25/2016, a new anterior TWI was noted, but TX was unlikely given the patient remained clinically asymptomatic with down trending troponin. Echo findings of global hypokinesis and nonfocal and had normal coronaries from angiogram in 2013. He had acute transaminitis felt to be secondary to congestive hepatopathy, which slowly resolved by discharge. A RHC was performed on 10/22/2016, which showed normal filling pressures with cardiac output. In the hospital, the patient had tachycardia and was seen by departmental secretary where he was discharged with a Zio patch and was scheduled to follow up for EP ablation. Zio patch showed low burden of atrial tachycardia and he recovered from his acute illness with latest TTE in October 2016 that showed improvement of ejection fraction from 45% to 50% and normal RV function. On evaluation at ED, initial troponin and EKG were unremarkable. He was given aspirin and nitroglycerin spray by EMS. Due to the patient's risk factors, the patient was admitted for evaluation of chest pain and for cardiac evaluation. He was continued on aspirin and statins. He had an echocardiogram done that showed ejection fraction of 50%. He was seen by Dr. Chowdhury and Dr. Gray. Troponins have been negative. A dobutamine stress test was nondiagnostic due to failure to achieve target heart rate as the patient was on beta blockade. He was advised to continue medical therapy and have outpatient follow up. Consideration for exercise stress test with myocardial perfusion if there are further clinical suggestions of ischemia. The patient was eventually discharged home. FINAL DIAGNOSES: 1. Atypical chest pain. 2. Recovered cardiomyopathy. 3. Paroxysmal atrial tachyarrhythmia. 4. Stress-induced cardiomyopathy. 5. Hypertension. 6. Adrenal insufficiency. 7. Gastroesophageal reflux disease. 8. Hypothyroidism. 9. Nondiagnostic stress test due to chronotropic incompetence secondary to beta blockade. Mady Cormier M.D. I have been assigned to dictate discharge summary on this account and I was not involved in the patient's management. Raven Shea N.P. DR: TANYA JOB#: [id number] CC:
== END 2017-01-07 18:40 | disposition home or self-care (01) | DRG 313 ==
LOC: EDBD 17:43 → EMR 19:06 → 2E 19:18 → EDBEDREQ 20:44 → 2E 22:35
DX: R07.89 Other chest pain (principal); E27.40 Unspecified adrenocortical insufficiency; I10 Essential (primary) hypertension; I51.81 Takotsubo syndrome; I47.1 Supraventricular tachycardia; E78.5 Hyperlipidemia, unspecified; K21.9 Gastro-esophageal reflux disease without esophagitis; E03.9 Hypothyroidism, unspecified; Z88.0 Allergy status to penicillin; Z88.2 Allergy status to sulfonamides; Z88.8 Allergy status to other drugs, medicaments and biological substances; I34.1 Nonrheumatic mitral (valve) prolapse
CPT/HCPCS: 36415; 71010; 78451; 80053; 80061; 80300; 81003; 82550; 83036; 83735; 83880; 84443; 84484; 85025; 85610; 85730; 93005; 93017; 93306; 94640; 94664; J8499